=== PATIENT | male | born 1980 | race Hispanic/Latino ===

== ENCOUNTER 2022-09-05 15:42 | Emergency (ER) | payer BC, OTHER ==
[2022-09-05] MEDS ORDERED: cefTRIAXone\\ROCEPHIN 500 MG VIAL ONE (17:16)
[2022-09-05] MEDS ORDERED: Lidocaine 1% PF 5 ML VIAL ONE (17:16)
[2022-09-06 15:56] LABS: Chlam.trachomatis by PCR,Urine Not Detected (NotDetected); GC N.gonorrhoeae PCR,UrineVOID Not Detected (NotDetected)
== END 2022-09-05 17:40 | disposition home or self-care (01) ==
LOC: CSHERS 15:42
DX: B35.6 Tinea cruris (principal); Z20.2 Contact with and (suspected) exposure to infections with a predominantly sexual mode of transmission; F17.210 Nicotine dependence, cigarettes, uncomplicated; I10 Essential (primary) hypertension; Z79.899 Other long term (current) drug therapy
CPT/HCPCS: 87491; 87591; 96372; 99283; J0696

== ENCOUNTER 2022-09-09 07:26 | Emergency (ER) | payer OTHER | END 2022-09-09 08:46 | disposition home or self-care (01) | LOC: CSHERS 07:26 | DX: M25.561 Pain in right knee (principal); I10 Essential (primary) hypertension; F17.210 Nicotine dependence, cigarettes, uncomplicated ==